=== PATIENT | male | born 1995 | race African-American/Black ===

== ENCOUNTER 2021-02-19 17:52 | Emergency (ER) | payer OTHER ==
[~2021-02-19] VITALS: Ht 170.2 cm; Wt 68.0 kg
[~2021-02-19 17:52] MED LIST: NOHOMEMEDICATIONS; TRAMADOL 50 MG50 MG PO
[2021-02-19 19:26] VITALS: BP 118/73
== END 2021-02-19 19:26 | disposition home or self-care (01) ==
LOC: ER 17:52
DX: K64.4 Residual hemorrhoidal skin tags (principal); F17.200 Nicotine dependence, unspecified, uncomplicated; Z90.79 Acquired absence of other genital organ(s)